=== PATIENT | female | born 1950 | race Caucasian/White ===

== ENCOUNTER 2021-08-27 08:10 | Emergency (ER) | payer OTHER, SELFPAY ==
[~2021-08-27] VITALS: Ht 167.6 cm; Wt 90.7 kg
[2021-08-27 08:10] VITALS: BP_SYST 114
--- NOTE | 2021-08-27 08:10 | NUR ---
PT TRIAGED AND ON GURNEY WITH ROUTE DELIVERY DRIVER WAITING ROOM FOR AVAILABLE BED
--- NOTE | 2021-08-27 08:15 | NUR ---
SENT FROM [facility], PER EMS PT O2 SAT WENT DOWN TO 80S THIS AM, EN ROUTE PLACED ON NC 5LPM O2 SAT UP TO 100%. O2 LOWERED TO 4LPM 100%. WAS NOT ON 02 AT FACILITY. PT IS AAOX3, V/S STABLE
--- NOTE | 2021-08-27 08:20 | NUR ---
ER examining patient.
[2021-08-27 09:21] LABS: BASOPHILS % (AUTO) 0.6 % (0.0-2.0); EOSINOPHILS # (AUTO) 0.3 K/uL (0.0-0.4); EOSINOPHILS % (AUTO) 3.5 % (0.0-4.0); HEMATOCRIT 34.3 % (36-48); LYMPHOCYTES % (AUTO) 12.1 % (20.5-51.5); MEAN CORPUSCULAR HEMOGLOBIN 32 pg (27-31); MEAN CORPUSCULAR HGB CONC 32 % (32-36); MEAN CORPUSCULAR VOLUME 99 fL (79.0-98.0); MONOCYTES # (AUTO) 1.2 K/uL (0.0-1.0); MONOCYTES % (AUTO) 14.5 % (1.7-9.3); NEUTROPHILS # (AUTO) 5.9 K/uL (1.8-7.7); NEUTROPHILS % (AUTO) 69.3 % (40.0-70.0); PLATELET COUNT (AUTO) 297 K/uL (130-430); RED BLOOD CELL COUNT(AUTO) 3.48 MIL/uL (4.2-6.2); RED CELL DISTRIBUTION WIDTH 15.4 % (9.0-15.0); WHITE BLOOD COUNT (AUTO) 8.6 K/uL (4.8-10.8)
[2021-08-27 09:27] LABS: ANION GAP 10 (5-15); CALCIUM 9.4 mg/dL (8.4-11.0); CHLORIDE 104 mmol/L (98-107); CREATININE 1.37 mg/dL (0.55-1.30); GLUCOSE 94 mg/dL (70-99); POTASSIUM 4.1 mmol/L (3.5-5.1); SODIUM SERUM 142 mmol/L (136-145); UREA NITROGEN, BLOOD 19 mg/dL (8-21)
[2021-08-27 09:32] LABS: ALANINE AMINOTRANSFERASE 14 U/L (12-78); ALBUMIN 2.5 g/dL (3.4-4.8); ASPARTATE AMINOTRANSFERASE 21 U/L (10-37); TOTAL BILIRUBIN 0.4 mg/dL (0.0-1.0)
--- NOTE | 2021-08-27 10:15 | NUR ---
RT AT THE BEDSIDE FOR ABG
--- NOTE | 2021-08-27 10:17 | NUR ---
PER RT PT NOW ON NC2L FOR COMFORT MEASURES. O2 SAT IS 100%, NO DISTRESS NOTED
[2021-08-27] MEDS ORDERED: IBUPROFEN 600 MG TABLET PO ONE (10:45)
[2021-08-27] MEDS ORDERED: HYDROcodone/ACETAMIN 5-325 MG TAB (NORCO/ VICODIN) PO ONE (10:45)
--- NOTE | 2021-08-27 10:55 | NUR ---
medicated with Motrin and [place] for pain 05/17 from pulmonary fibrosis, unable to scan meds, pti in ambulance bay with EMS
[2021-08-27 11:10] VITALS: BP_SYST 108
--- NOTE | 2021-08-27 11:10 | NUR ---
Patient given written and verbal discharge instructions and verbalizes understanding. ER Dr. Garcia discussed with patient the results and treatment provided. Patient in stable condition. IV catheter remained in place, back to [facility]. Patient educated on pain management and to follow up with PMD. Pain Scale 10, medicated prior to leaving. Opportunity for questions provided and answered.
== END 2021-08-27 11:10 ==
LOC: SED 08:10
DX: J84.10 Pulmonary fibrosis, unspecified (principal); Z79.899 Other long term (current) drug therapy
CPT/HCPCS: 36415; 36600; 71045; 80053; 82803-TC; 83605; 83880; 85025; 93005; 99285